=== PATIENT | male | born 1975 | race African-American/Black ===

== ENCOUNTER 2022-01-02 19:57 | Emergency (ER) | payer OTHER ==
[~2022-01-02] VITALS: Ht 162.6 cm; Wt 72.6 kg
[2022-01-02 20:36] LABS: PLATELET COUNT 290 K/uL (142-355)
[2022-01-02 20:50] LABS: POTASSIUM 3.2 mmol/L (3.6-5.2); SODIUM 139 mmol/L (136-145)
[2022-01-03 07:30] VITALS: BP 122/66; TEMP 98.2
== END 2022-01-03 09:46 | disposition home or self-care (01) ==
LOC: EDBD 19:57 → ED 19:57
PROVIDERS: Hospitalist
DX: F32.89 Other specified depressive episodes (principal); R45.851 Suicidal ideations; F10.129 Alcohol abuse with intoxication, unspecified; Y90.7 Blood alcohol level of 200-239 mg/100 ml; Z20.822 Contact with and (suspected) exposure to COVID-19
CPT/HCPCS: 36415; 80053; 80143; 80179; 80307; 80320; 81002; 85027; 87635; 93005; 96365; 99285; J3411; J3475; J3490; U0003